=== PATIENT | female | born 1995 | race Caucasian/White ===

== ENCOUNTER 2019-05-15 06:12 | Inpatient (IN) ==
[2019-05-15] MEDS ORDERED: D5 1/2 NS 1000 ML 1,000 ML ONE (06:26)
[2019-05-15] MEDS: D5 1/2 NS 1000 ML 1,000 ML IV SCH ×2 (06:45→15:47)
--- NOTE | 2019-05-15 07:01 | DR.OB ---
OB Quick Note - Assessment/Plan Assessment/Plan: L&D 05/15/19 at 6:50am S-No complaint. O-Afebrile,VSS BKY=255 with good LTV, +accel, no decel. CTX=q 2-3 min., mild by palpation CVX=1cm/50%/-1/VTX AROM with clear fluid. IUPC placed. FSE not able to be placed. A-IUP at 39 3/7 weeks for induction P-Begin pitocin induction Anticipate
[2019-05-15] MEDS ORDERED: PITOCIN ONE ×2 (07:26→16:17)
[2019-05-15] MEDS ORDERED: D5 1/2 NS 1L W PITOCIN 20 UNITS/L 20 UNITS/1,000 ML BAG IV ONE ×2 (07:26→19:14)
[2019-05-15] MEDS ORDERED: D5LR 1L W PITOCIN 10 UNITS/L 10 UNITS/1,000 ML BAG IV ONE (07:26)
[2019-05-15] MEDS ORDERED: MORPHINE SULFATE INJ 2 MG INJ IVP PRN (07:47)
[2019-05-15] MEDS ORDERED: REGLAN INJ 10 MG VIAL IVP PRN ×2 (07:47→18:15)
[2019-05-15] MEDS ORDERED: NUBAIN INJ 200 MG VIAL MULTIDOSE IVP PRN (07:47)
[2019-05-15] MEDS ORDERED: PHENERGAN INJ 25 MG IM PRN ×2 (07:47→18:15)
[2019-05-15] MEDS ORDERED: D5LR 1L W PITOCIN 10 UNITS/L 10 UNITS/1,000 ML BAG IV PRN (07:47)
[2019-05-15] MEDS ORDERED: PITOCIN IVP ONE (07:47)
[2019-05-15] MEDS ORDERED: NUBAIN INJ 10 ONE (09:58)
[2019-05-15] MEDS ORDERED: NAROPIN EPIDURAL 0.2% + FENTANYL 90MCG 60 ML EPI ONE (11:03)
[2019-05-15] MEDS ORDERED: LR 1000 ML IV 1,000 ML ONE ×2 (11:03→16:13)
[2019-05-15] MEDS ORDERED: FENTANYL INJ 100 mcg ONE (11:03)
--- NOTE | 2019-05-15 12:14 | DR.OB ---
OB Quick Note - Assessment/Plan Assessment/Plan: L&D 05/15/19 at 12:10pm Pitocin=14mu/min. S-No complaint. s/p epidural. O-Afebrile,VSS RNV=035 with good LTV, +accel, no decel. CTX=q 1 1/2 to 2 min., about 45-55mmHg CVX=1cm/75%/-1/VTX A-IUP at 39 3/7 weeks for induction P-Cont. pitocin induction Anticipate
[2019-05-15] MEDS ORDERED: NS IRRIGATION 1000 ML ONE (13:06)
[2019-05-15] MEDS ORDERED: XYLOCAINE 2% and EPINEPHRINE 1:100,000 ONE (16:04)
[2019-05-15] MEDS ORDERED: VERSED ONE (16:17)
[2019-05-15] MEDS ORDERED: ANCEF 1 GRAM IV PREMIX* 1 G/50 ML BAG IV ONE (16:48)
[2019-05-15] MEDS ORDERED: DILAUDID INJ ONE (16:59)
[2019-05-15] MEDS ORDERED: ZOFRAN INJ 4 MG VIAL IVP PRN ×2 (18:15→18:30)
[2019-05-15] MEDS ORDERED: DILAUDID INJ IVP PRN (18:15)
[2019-05-15] MEDS ORDERED: BENADRYL INJ 50 MG VIAL IVP PRN ×2 (18:15→18:30)
[2019-05-15] MEDS ORDERED: TORADOL 30 MG VIAL IVP PRN (18:30)
[2019-05-15] MEDS ORDERED: ADACEL or BOOSTRIX TDaP VACCINE IM ONE (18:30)
[2019-05-15] MEDS ORDERED: MYLICON TAB 80 MG CHEW PO PRN (18:30)
[2019-05-15] MEDS ORDERED: PERCOCET TAB 5/325 MG PO PRN (18:30)
[2019-05-15] MEDS ORDERED: NARCAN INJ IVP PRN (18:30)
[2019-05-15] MEDS ORDERED: D5 1/2 NS 1000 ML 1,000 ML with PITOCIN 20 UNITS IV SCH ×2 (19:00)
[2019-05-15] MEDS: ZANTAC PO SCH (20:16)
[2019-05-16 04:17] LABS: HEMATOCRIT 22.3 % (36.0-47.0); HEMOGLOBIN 7.3 g/dL (12.0-16.0)
[2019-05-16] MEDS ORDERED: MOTRIN TAB 800 MG PO PRN (07:23)
[2019-05-16] MEDS ORDERED: COLACE CAP 100 MG PO ONE (08:19)
[2019-05-16] MEDS: ZANTAC PO SCH ×2 (08:22→21:28)
[2019-05-16] MEDS: COLACE CAP 100 MG PO SCH ×2 (08:22→21:28)
[2019-05-16] MEDS: PRENATAL PLUS PO SCH (08:23)
[2019-05-16] MEDS ORDERED: PERCOCET TAB 5/325 MG ONE (10:11)
[2019-05-16] MEDS: PERCOCET TAB 5/325 MG PO PRN ×3 (10:14→21:28)
[2019-05-16] MEDS: BACTROBAN CREAM TOP SCH ×2 (13:00→21:28)
[2019-05-16] MEDS: FERROUS GLUCONATE PO SCH (17:34)
[2019-05-17 04:43] VITALS: BP 117/65
[2019-05-17] MEDS: BACTROBAN CREAM TOP SCH (06:05)
[2019-05-17] MEDS: FERROUS GLUCONATE PO SCH (06:06)
[2019-05-17] MEDS: PERCOCET TAB 5/325 MG PO PRN (06:35)
[2019-05-17] MEDS: COLACE CAP 100 MG PO SCH (08:42)
[2019-05-17] MEDS: PRENATAL PLUS PO SCH (08:42)
[2019-05-17] MEDS: ZANTAC PO SCH (08:42)
== END 2019-05-17 12:35 | disposition home or self-care (01) | DRG 788 ==
LOC: LD 06:12
PROVIDERS: ADMIT Specialist; ATTEND Specialist
DX: D50.8 Other iron deficiency anemias; O61.8 Other failed induction of labor; Z3A.39 39 weeks gestation of pregnancy; Z23 Encounter for immunization; O99.013 Anemia complicating pregnancy, third trimester; O62.0 Primary inadequate contractions; Z37.0 Single live birth
CPT/HCPCS: 36415; 85014; 85018; 90715; A4216; A4222; S0197; J0690; J1170; J1885; J2001; J2250; J2300; J2590; J3010; J3490; J7120; S5010